=== PATIENT | female | born 1960 | race Caucasian/White ===

== ENCOUNTER 2019-12-28 10:45 | Emergency (ER) | payer MEDICARE, SELFPAY ==
[2019-12-28 11:05] VITALS: BP 142/79; PULSE 77; RESP 16; TEMP 36.6; O2SAT 98
--- NOTE | 2019-12-28 11:15 | ED.DIZZY ---
HPI - Dizziness General Chief Complaint: Dizziness Stated Complaint: Dizzy Time Seen by Provider: 12/28/19 11:15 Source: patient and RN notes reviewed Mode of arrival: ambulatory Limitations: no limitations History of Present Illness MD elicited complaint: dizziness, difficulty walking and vertigo Onset (ago): day(s) (1) Timing: sudden onset Severity: severe Description: room spinning History of similar symptoms: No Exacerbating factors: movement/ambulation and change in body position Relieving factors: remaining still and keeping eyes open Associated symptoms: nausea Related Data Home Medications Medication Instructions Recorded Confirmed bupropion HCl 150 mg PO BID 12/28/19 12/28/19 celecoxib 100 - 200 mg PO BID PRN 12/28/19 12/28/19 cyclobenzaprine 10 mg PO PRN PRN 12/28/19 12/28/19 dicyclomine 20 mg PO QID 12/28/19 12/28/19 hyoscyamine sulfate 0.125 mg PO Q4H PRN 12/28/19 12/28/19 lamotrigine 200 mg PO DAILY 12/28/19 12/28/19 lisinopril 30 mg PO DAILY 12/28/19 12/28/19 pantoprazole 40 mg PO DAILY 12/28/19 12/28/19 pravastatin 20 mg PO DAILY 12/28/19 12/28/19 prazosin 1 mg PO HS 12/28/19 12/28/19 sertraline 200 mg PO DAILY 12/28/19 12/28/19 trazodone 150 mg PO HS 12/28/19 12/28/19 Allergies Allergy/AdvReac Type Severity Reaction Status Date / Time No Known Allergies Allergy Verified 12/28/19 11:10 Review of Systems Review of Systems: All systems reviewed & are unremarkable except as noted in HPI and below Constitutional: Constitutional: Denies chills and Denies fever(s) Cardiovascular: Cardiovascular: Reports no additional cardiovascular complaints and Denies rapid heart rate Respiratory: Respiratory: Reports no additional respiratory complaints Gastrointestinal: Gastrointestinal: Reports no additional gastrointestinal complaints Neurologic: Reports as per HPI, Denies confusion, Denies headache(s), Denies focal weakness and Denies weakness Psychiatric: Psychiatric: Reports no additional psychiatric complaints PMFSH Past Medical History Medical History (Updated 12/28/19 @ 13:08 by Fam Contreras MD) Depression GERD (gastroesophageal reflux disease) Hyperlipidemia Hypertension Osteoarthritis Surgical History Surgical History (Updated 12/28/19 @ 13:52 by Fam Contreras MD) H/O cervical spine surgery H/O shoulder surgery History of cholecystectomy Exam Const: General: healthy appearing and no acute distress Nutritional Appearance: well nourished Orientation/consciousness: patient oriented x3 HENMT: Head: normal to inspection Ears: external ear abnormal General nose exam: Normal external nose present Face and sinus: normal facial exam Mouth: Yes Normal oral and palatal mucosa present Eyes: Conjunctivae: conjunctivae normal Pupils: Equal, round and reactive pupils present Neck: Neck: normal visual inspection Resp: Effort & Inspection: normal respiratory effort Auscultation: clear to auscultation bilaterally Cardio: Rate: regular rate Rhythm: regular rhythm GI: Auscultation: normal bowel sounds Back/Spine/Pelvis: Cervical Spine: cervical ROM normal Thoracic/Lumbar Spine: thoraco-lumbar ROM normal Skin: General skin exam: normal color Rashes: no rashes Neuro: General: patient oriented x3, moves all extremities and no focal motor deficits Cranial nerves: Yes Nystagmus not present Speech: normal speech Gait exam (Neuro): Normal gait present Extrem: General: normal to inspection and no clubbing, cyanosis or edema Psych: Appearance: grossly normal and well kempt Mental Status: mental status grossly normal Affect: normal affect Attitude: cooperative Thought content: Yes Normal thought content present Course Vital Signs Vital signs: Vital Signs Temperature 36.6 C 12/28/19 11:05 Pulse Rate 77 12/28/19 11:05 Respiratory Rate 16 12/28/19 11:05 Blood Pressure 142/79 H 12/28/19 11:05 Pulse Oximetry 98 12/28/19 11:05 Temperature 36.6 C 12/28/19
--- NOTE | 2019-12-28 11:21 | ECG_ITS ---
Measurements Intervals [place] Rate: 73 P: 59 TX: 184 QRS: 91 QRSD: 137 T: 17 QT: 415 QTc: 460 Interpretive Statements SINUS RHYTHM RIGHT BUNDLE BRANCH BLOCK BASELINE ARTIFACT- I, II, III, AVF ABNORMAL ECG Electronically Signed On 12-28-2019 11:34:13 [employer] by Robin Mcclelland D.O.
[2019-12-28] MEDS: MECLIZINE HCL 25 MG TABLET PO (11:38)
[2019-12-28 12:00] LABS: Basophils Absolute Auto 0.02 K/mm3 (0.00-0.10); Basophils Percent Auto 0.3 % (0.0-1.0); Eosinophils Absolute Auto 0.07 K/mm3 (0.02-0.50); Eosinophils Percent Auto 1.2 % (1.0-6.0); Hematocrit 40.7 % (35.0-49.0); Hemoglobin 13.5 g/dL (12.0-15.0); Immature Granulocyte Absolute 0.01 K/mm3 (0.00-0.00); Immature Granulocyte Percent A 0.2 % (0.0-0.0); Lymphocytes Absolute Auto 3.07 K/mm3 (1.10-4.50); Lymphocytes Percent Auto 51.3 % (18.0-42.0); Mean Corpuscular HGB Conc 33.2 g/dL (32.0-36.0); Mean Corpuscular Hemoglobin 30.8 pg (27.0-31.0); Mean Corpuscular Volume 92.7 fL (78.0-102.0); Mean Platelet Volume 9.7 fl (9.2-11.8); Monocytes Absolute Auto 0.38 K/mm3 (0.10-0.90); Monocytes Percent Auto 6.3 % (2.0-11.0); Neutrophils Absolute Auto 2.4 K/mm3 (1.7-7.2); Neutrophils Percent Auto 40.7 % (50.0-70.0); Platelet Count Result 212 K/mm3 (150-420); Red Blood Count 4.39 M/mm3 (4.20-5.40); Red Cell Distribution Width 11.6 % (11.6-14.4)
[2019-12-28 12:26] LABS: Alanine Aminotransferase 26 U/L (14-59); Alkaline Phosphatase 164 U/L (46-116); Anion Gap 7 mmol/L (8-16); Aspartate Amino Transferase 12 U/L (15-37); Bilirubin,Total 0.2 mg/dL (0.00-1.00); Blood Urea Nitrogen 13 mg/dL (7-18); Calcium 9.4 mg/dL (8.5-10.1); Carbon Dioxide 28 mmol/L (21-32); Chloride 103 mmol/L (98-108); Estimated CRCL calculation 56 ml/min; Estimated Glomerular Filt Rate > 60; Glucose 96 mg/dL (70-99); Osmolality Calculated 286 mOsm/kg (285-295); Potassium 4.1 mmol/L (3.5-5.1); Sodium 138 mmol/L (136-145); Thyroid Stimulating Hormone 2.23 uIU/mL (0.36-3.74); Total Protein 7.8 g/dL (6.4-8.2)
[2019-12-28 12:33] VITALS: BP 133/74; PULSE 68; RESP 16; O2SAT 96
--- NOTE | 2019-12-28 12:50 | PC.NURSE ---
Pt ambulatory to bathroom. pt states that she if feeling much better and dizziness is improved.
== END 2019-12-28 13:05 | disposition home or self-care (01) ==
PROVIDERS: Emergency Provider Emergency Medicine
DX: H81.10 Benign paroxysmal vertigo, unspecified ear (principal); K21.9 Gastro-esophageal reflux disease without esophagitis; E78.5 Hyperlipidemia, unspecified; I10 Essential (primary) hypertension
CPT/HCPCS: 36415; 80053; 83735; 84443; 85025; 93005; 99283; A9270